=== PATIENT | female | born 1945 | race Caucasian/White ===

== ENCOUNTER → 2016-07-08 | Outpatient (CLI) | payer MEDICARE, OTHER | END | disposition home or self-care (01) | LOC: PCVCIMAG 10:22 | PROVIDERS: ATTEND Internal Medicine Cardiovascular Disease | DX: I10 Essential (primary) hypertension (principal); E78.00 Pure hypercholesterolemia, unspecified; I34.0 Nonrheumatic mitral (valve) insufficiency; I25.10 Atherosclerotic heart disease of native coronary artery without angina pectoris; I44.7 Left bundle-branch block, unspecified; I35.0 Nonrheumatic aortic (valve) stenosis; Z78.9 Other specified health status | CPT/HCPCS: 80061; 93005; 93306; G0463 ==

== ENCOUNTER → 2017-04-16 | Outpatient (CLI) | payer MEDICARE, OTHER | END | disposition home or self-care (01) | LOC: PCVCCLINIC 14:13 | DX: I25.10 Atherosclerotic heart disease of native coronary artery without angina pectoris (principal); I10 Essential (primary) hypertension; E78.00 Pure hypercholesterolemia, unspecified; I06.0 Rheumatic aortic stenosis; I05.1 Rheumatic mitral insufficiency; C91.10 Chronic lymphocytic leukemia of B-cell type not having achieved remission; R94.31 Abnormal electrocardiogram [ECG] [EKG]; Z79.899 Other long term (current) drug therapy; Z79.82 Long term (current) use of aspirin | CPT/HCPCS: 80061; 93005; G0463 ==

== ENCOUNTER → 2017-12-09 | Outpatient (CLI) | payer MEDICARE, OTHER ==
--- NOTE | 2017-12-09 11:51 | PCVCIMAG ---
APPROVED REPORT Study performed: 12/09/2017 10:18:09 Exam: Stress Echocardiogram Indication: CAD, LBBB, aortic sclerosis, HTN, HLP Patient Location: Echo lab Stress Nurse: Brittanie Anderson RN Status: routine Ht: 5 ft 2 in HR: 70 bpm BP: 122/76 mmHg Rhythm: LBBB Procedure The patient underwent an Exercise Stress Test using the Deric Protocol. Blood pressure, heart rate, and EKG were monitored. An Echocardiogram was performed by quality systems technician in four stages in quad fashion. At peak stress, four selected images were obtained and placed side by side with resting images for comparison. Stress Test Details Stress Test: Exercise stress testing was performed using a Deric protocol. HR Resting HR: 70 bpmMax Heart Rate (APMHR): 146 bpm Max HR Achieved: 155 bpmTarget HR (85% APMHR): 124 bpm % of APMHR: 106 Recovery HR: 77 bpm HR response to stress: Normal HR response to stress BP Resting BP: 122/76 mmHg Max BP: 154/70 mmHg Recovery BP: 118/64 mmHg ECG Resting ECG: Sinus Rhythm, LBBB Stress ECG: Sinus Rhythm, LBBB ST Change: Nondiagnostic resting ST abnormalities Arrhythmia: occasional PVCs Recovery ECG: Sinus Rhythm, LBBB Recovery ST Change: Nondiagnostic resting ST abnormalities Recovery Arrhythmia: occasional PVC Clinical Reason for Termination: Maximal effort Stress Symptoms: Dyspnea Exercise duration: 7 min sec Highest Stage Achieved: Stage 3: 3.4 mph at 14% grade. Exercise capacity: 10.1 METs Overall Exercise Capacity for Age: Normal Angina Score: None Pre-Stress Echo The resting Echocardiogram showed normal left ventricular contractility with an estimated Ejection Fraction of about 45%. Discordant septal motion consistent with LBBB. Post-Stress Echo The stress Echocardiogram showed normal left ventricular contractility with an estimated Ejection Fraction of about 50-55%. Discordant septal motion consistent with LBBB. Clinical No clinical or ECG evidence for ischemia. Conclusion Clinical Response: Non-ischemic Exercise Capacity: Average Stress ECG Response: [id number] Stress Echo Images: Non-ischemic The left ventricle is normal in size and wall thickness in both the rest and stress images. Other Information Study Quality: Adequate <Conclusion> The left ventricle is normal in size and wall thickness in both the rest and stress images.
== END | disposition home or self-care (01) ==
LOC: PCVCIMAG 10:26
PROVIDERS: ATTEND Internal Medicine Cardiovascular Disease
DX: I25.10 Atherosclerotic heart disease of native coronary artery without angina pectoris (principal); I10 Essential (primary) hypertension; I35.0 Nonrheumatic aortic (valve) stenosis
CPT/HCPCS: 93325; 93351

== ENCOUNTER → 2018-09-09 | Outpatient (CLI) | payer MEDICARE, OTHER | END | disposition home or self-care (01) | LOC: PCVCCLINIC 10:50 | PROVIDERS: ATTEND Internal Medicine Cardiovascular Disease | DX: I25.10 Atherosclerotic heart disease of native coronary artery without angina pectoris (principal); E78.00 Pure hypercholesterolemia, unspecified; C91.90 Lymphoid leukemia, unspecified not having achieved remission; I44.7 Left bundle-branch block, unspecified; I10 Essential (primary) hypertension; Z88.2 Allergy status to sulfonamides; Z91.040 Latex allergy status; Z88.6 Allergy status to analgesic agent | CPT/HCPCS: 36415; 80061; 93005; G0463 ==